=== PATIENT | male | born 1995 | race Two or more races ===

== ENCOUNTER 2019-09-18 03:30 | Emergency (ER) | payer OTHER ==
[~2019-09-18] VITALS: Ht 180.3 cm; Wt 70.3 kg
[2019-09-18] MEDS ORDERED: MORPHINE SULF INJ 2 MG/ML SYRINGE 1ML IV ONE (03:45)
[2019-09-18] MEDS ORDERED: ONDANSETRON HCL 4 MG/2 ML VIAL IV ONE (03:45)
[2019-09-18] MEDS ORDERED: ONDANSETRON HCL 4 MG/2 ML VIAL ONE (03:53)
[2019-09-18] MEDS ORDERED: MORPHINE SULF INJ 2 MG/ML SYRINGE 1ML ONE (03:53)
[2019-09-18 04:01] LABS: Hematocrit 41.3 % (41.0-53.0); Hemoglobin 13.8 g/dL (13.5-17.5); Mean Corpuscular Hgb Conc. 33.5 g/dL (32.0-36.0); Mean Corpuscular Volume 92.5 fL (80.0-100.0); Platelet Count (auto) 331 10^3/uL (140-450); Red Blood Cells 4.47 10^6/uL (4.5-5.90); Red Cell Distribution Width 12.8 % (11.8-14.3); White Blood Cell 28.1 10^3/uL (4.4-10.8)
[2019-09-18 04:12] LABS: Band Neutrophils % (manual) 0; Basophils % (manual) 0 (0.0-2.0); Blast Cells 0; Eosinophils % (manual) 0 (0-7); Metamyelocytes % 0; Myelocytes % 0; Promyelocytes % 0; Reactive Lymphocytes 0
[2019-09-18 04:15] LABS: INR 1.33 (0.9-1.15); Partial Thromboplastin Time 24.6 sec (23.64-32.05)
[2019-09-18 04:19] LABS: Albumin 4.1 g/dL (3.4-5.0); BUN/Creatinine Ratio 12.5; Calcium 8.3 mg/dL (8.5-10.1)
[2019-09-18] MEDS ORDERED: IOHEXOL 300 MG/ML 100ML BOTTLE IJ ONE (04:19)
[2019-09-18] MEDS ORDERED: SODIUM CHLORIDE 0.9% 2,000 ML IV ONE (04:20)
[2019-09-18] MEDS ORDERED: fentaNYL CITRATE 100 MCG/2 ML VL ONE (04:20)
[2019-09-18 04:21] LABS: Total Protein 7.6 g/dL (6.4-8.2)
[2019-09-18 04:24] LABS: Potassium 2.3 mmol/L (3.5-5.1)
[2019-09-18] MEDS ORDERED: fentaNYL CITRATE 100 MCG/2 ML VL IV ONE (04:30)
[2019-09-18] MEDS ORDERED: POTASSIUM CHL 20MEQ/100ML 100 ML IV ONE ×2 (04:32→04:45)
[2019-09-18 04:34] LABS: Lymphocytes % (manual) 16 (10.0-50.0); Monocytes % (manual) 11 (0-12)
[2019-09-18] MEDS ORDERED: MORPHINE SULF INJ 2 MG/ML SYRINGE 1ML IV PRN (04:45)
[2019-09-18 05:15] VITALS: BP 120/73
== END 2019-09-18 04:25 | disposition short-term general hospital (02) ==
LOC: ER 03:30
DX: S72.331A Displaced oblique fracture of shaft of right femur, initial encounter for closed fracture (principal); S06.0X1A Concussion with loss of consciousness of 30 minutes or less, initial encounter; S19.9XXA Unspecified injury of neck, initial encounter; R11.10 Vomiting, unspecified; V86.96XA Unspecified occupant of dirt bike or motor/cross bike injured in nontraffic accident, initial encounter; Y93.89 Activity, other specified; Y92.89 Other specified places as the place of occurrence of the external cause; Y99.8 Other external cause status
CPT/HCPCS: 29505; 36415; 36430; 70450; 72125; 73552; 80053; 85007; 85027; 85610; 85730; 86850; 86900; 86901; 86920; 93005; 96361; 96374; 96375; 96376; 99285; J2270; J2405; J3010; J3480; J7030; P9016; Q9967